=== PATIENT | male | born 1965 ===

== ENCOUNTER 2024-12-05 11:21 | Outpatient (REF) | payer BC, SELFPAY ==
[2024-12-05 14:42] LABS: HCT 40.3 % (40.0-50.0); HGB 13.1 g/dL (13.5-17.5); MCH 29.9 pg (27.0-33.0); MCHC 32.5 % (32.0-36.0); MCV 92 fL (80-95); MPV 9.9 fL (8.0-11.0); Platelet Count 242 10^3/uL (130-400); RBC 4.38 10^6/uL (4.36-5.78); RDW 11.9 % (11.8-14.1); RDW-SD 40.2 fL; WBC 4.74 10^3/uL (4.4-10.8)
[2024-12-05 15:00] LABS: ALT 32 U/L (16-63); AST 26 U/L (15-37); Albumin 4.2 g/dL (3.4-5.0); Alkaline Phosphatase 62 U/L (46-116); Anion Gap 5.8 mmol/L (3-11); BUN 14 mg/dL (7-18); Bilirubin, Total 0.9 mg/dL (0.2-1.0); CO2 30.2 mmol/L (21.0-32.0); Calcium 8.6 mg/dL (8.5-10.1); Calculated LDL 100 mg/dL (<100); Chloride 104 mmol/L (98-107); Cholesterol 192 mg/dL (<200); Estimated GFR 100.69 (mL/min/1.73m2); Glucose 104 mg/dL (74-106); HDL Cholesterol 85 mg/dL (>or=40); Potassium 4.5 mmol/L (3.5-5.1); Sodium 140 mmol/L (136-145); TSH 1.36 uIU/mL (0.36-3.74); Total Protein 7.4 g/dL (6.4-8.2); Triglyceride 38 mg/dL (<150)
== END 2024-12-05 11:22 | disposition home or self-care (01) ==
LOC: NCHCN 11:21
PROVIDERS: Visit Provider Physician Assistant
DX: Z91.89 Other specified personal risk factors, not elsewhere classified (principal); E78.2 Mixed hyperlipidemia
CPT/HCPCS: 80053; 80061; 85027; 84443